=== PATIENT | female | born 1970 | race Caucasian/White ===

== ENCOUNTER 2017-05-18 10:54 | Day surgery (SDC) | payer OTHER ==
[~2017-05-18 10:54] MED LIST: LIDOCAINE 2% (SDV) 5 ML INJ
[2017-05-18] MEDS ORDERED: SOD CHLORIDE 0.9% 1,000 ML IV (12:00)
[2017-05-18] MEDS ORDERED: CEFAZOLIN 2 GM/50 ML (PMX) 50 ML IVPB (12:00)
[2017-05-18] MEDS ORDERED: PROPOFOL 20 ML (12:01)
[2017-05-18] MEDS ORDERED: MIDAZOLAM 1 MG/ML 2 ML INJ (12:01)
[2017-05-18] MEDS ORDERED: FENTAnyl 50 MCG/ML VIAL (12:01)
[2017-05-18] MEDS ORDERED: CEFAZOLIN 1 GM INJ (12:01)
[2017-05-18] MEDS ORDERED: NEOSTIGMINE 3 MG/3 ML SYRINGE (12:01)
[2017-05-18] MEDS ORDERED: GLYCOPYRROLATE 0.4 MG INJ (12:01)
[2017-05-18] MEDS ORDERED: ROCURONIUM 50 MG INJ (12:01)
[2017-05-18] MEDS ORDERED: ONDANSETRON 4 MG INJ (12:02)
[2017-05-18] MEDS ORDERED: DEXAMETHASONE 4 MG/ML 1 ML INJ (12:02)
[2017-05-18 12:18] LABS: ADD MAN DIFF? NO
[2017-05-18 12:22] LABS: WHITE BLOOD COUNT 10.3 10^3/ul (4.8-10.8)
[2017-05-18 12:22] LABS: BASOPHILS % 0.4 % (0.0-2.0); EOSINOPHILS # 0.2 10^3/ul (0.0-0.5); EOSINOPHILS % 1.8 % (0.0-7.0); HEMATOCRIT 37.1 % (37.0-47.0); HEMOGLOBIN 12.8 g/dl (12.0-16.0); LYMPHOCYTES # 2.9 10^3/ul (0.8-2.9); LYMPHOCYTES % 27.8 % (15.0-51.0); MEAN CORPUSCULAR HEMOGLOBIN 31.8 pg (29.0-33.0); MEAN CORPUSCULAR HGB CONC 34.5 g/dl (32.0-37.0); MEAN CORPUSCULAR VOLUME 92.1 fl (82.0-101.0); MEAN PLATELET VOLUME 9.1 fl (7.4-10.4); MONOCYTE # 0.7 10^3/ul (0.3-0.9); MONOCYTES % 6.7 % (0.0-11.0); NEUTROPHIL # 6.5 10^3/ul (1.6-7.5); NEUTROPHILS % 62.6 % (39.0-77.0); PLATELET COUNT 402 10^3/UL (140-415); RED BLOOD COUNT 4.03 10^6/ul (4.20-5.40); RED CELL DISTRIBUTION WIDTH 12.7 % (11.5-14.5)
[2017-05-18 12:40] LABS: ALANINE AMINOTRANSFERASE 47 IU/L (13-69); ALBUMIN 4.5 g/dl (3.3-4.9); ALBUMIN/GLOBULIN RATIO 1.28; ALKALINE PHOSPHATASE 100 IU/L (42-121); ANION GAP 16 (8-16); ASPARTATE AMINO TRANSFERASE 56 IU/L (15-46); BILIRUBIN,INDIRECT 0.1 mg/dl (0-1.1); BILIRUBIN,TOTAL 0.1 mg/dl (0.2-1.3); CARBON DIOXIDE 26 mmol/L (21-31); CHLORIDE 106 mmol/L (97-110); GLUCOSE 99 mg/dl (70-220)
[2017-05-18 12:44] LABS: BLOOD UREA NITROGEN 11 mg/dl (7-20); CALCIUM 9.3 mg/dl (8.4-10.2); CREATININE 0.59 mg/dl (0.44-1.00); POTASSIUM 5.3 mmol/L (3.5-5.1); SODIUM 143 mmol/L (135-144)
[2017-05-18 12:47] LABS: INR 0.91; PROTIME 12.3 Sec (11.9-14.9)
[2017-05-18 12:48] LABS: PARTIAL THROMBOPLASTIN TIME 26.7 Sec (25.0-35.0)
[2017-05-18] MEDS ORDERED: ALBUTEROL 0.083% (NEB) 2.5 MG/3 ML AMP HHN (13:30)
[2017-05-18] MEDS ORDERED: TRIMETHOBENZAMIDE 100 MG/ML VIAL IM (13:30)
[2017-05-18] MEDS ORDERED: FENTAnyl 50 MCG/ML VIAL IV ×2 (13:30)
[2017-05-18] MEDS ORDERED: LABETALOL HCL 20MG INJ IV (13:30)
[2017-05-18] MEDS ORDERED: HYDROCODONE/APAP (5/325) TAB PO (13:30)
[2017-05-18] MEDS ORDERED: MIDAZOLAM 1 MG/ML 2 ML INJ IV (13:30)
[2017-05-18] MEDS ORDERED: hydrALAzine 20 MG INJ IV (13:30)
[2017-05-18] MEDS ORDERED: DIPHENHYDRAMINE 50 MG INJ IV (13:30)
[2017-05-18] MEDS ORDERED: IPRATROPIUM (NEB) 0.5 MG/2.5 ML AMP HHN (13:30)
[2017-05-18] MEDS ORDERED: EPHEDrine SULFATE 50 MG/5 ML SYG IV (13:30)
[2017-05-18] MEDS ORDERED: HYDROmorphONE (0.2 MG/ML) 10ML SYG IV ×2 (13:30)
[2017-05-18] MEDS ORDERED: OXYCODONE/ACETAMINOPHEN (5/325) TAB PO (13:30)
[2017-05-18] MEDS: FENTAnyl 50 MCG/ML VIAL IV ×2 (13:31→13:44)
[2017-05-18] MEDS: ONDANSETRON 4 MG INJ IV (13:33)
[2017-05-18] MEDS: BUPIVACAINE 0.25% (MPF) 30 ML INJ (13:34)
[2017-05-18] MEDS: MEPERIDINE 25 MG INJ IV (13:34)
[2017-05-18] MEDS: POLYMYXIN/BACITRACIN 1L IRRIG IRR (13:34)
[2017-05-18] MEDS: HYDROmorphONE (0.2 MG/ML) 10ML SYG IV ×3 (13:48→14:14)
[2017-05-18] MEDS: OXYCODONE/ACETAMINOPHEN (5/325) TAB PO (15:12)
== END 2017-05-18 16:30 | disposition home or self-care (01) ==
LOC: SDS 10:54
DX: K43.6 Other and unspecified ventral hernia with obstruction, without gangrene (principal)
CPT/HCPCS: 49653; 80053; 84703; 85025; 85610; 85730; 88302